=== PATIENT | female | born 1980 | race Caucasian/White ===

== ENCOUNTER 2017-07-08 13:02 | Emergency (ER) | payer MEDICAID ==
[~2017-07-08 13:02] MED LIST: AMLO5 PO; THYROID PO
[2017-07-08 13:03] VITALS: BP 180/91; PULSE 65; RESP 16; TEMP 98.4; O2SAT 100
[2017-07-08] MEDS ORDERED: HYDR-3801 PO (13:41)
--- NOTE | 2017-07-08 13:42 | PD ---
HPI Chief Complaint: Abdominal Pain Time Seen by Provider: 13:40 Travel History International Travel<30 days: No Contact w/Intl Traveler<30days: No Traveled to known affect area: No History of Present Illness HPI 37-year-old female patient presents to the ER today, states that she has been having several months history of upper abdominal pains, intermittent nausea, and chest discomfort, states that her pain is currently a 5 out of 10. She does not know of any alleviating or exacerbating factors. She denies any diarrhea, fevers, or any other symptoms. Modifying Factors: None Associated Signs & Symptoms: Upper abdominal pain Risk Factors: None PFSH Past Medical History Anemia: Yes Diminished Hearing: No Thyroid Disease: Yes : 2 Para: 2 Miscarriage: 0 : 0 Past Surgical History Cholecystectomy: Yes Other Surgery: Yes (THYRIODECTOMY ) Social History Alcohol Use: No Tobacco Use: No Substance Use: No Allergies-Medications (Allergen,Severity, Reaction): Coded Allergies: No Known Allergies (Verified Adverse Reaction, Unknown, 07/08/17) Reported Meds & Prescriptions Reported Meds & Active Scripts Active Reported Hydralazine (Hydralazine HCl) 100 Mg Tab 10 Mg PO BID Take with meals Review of Systems Except as stated in HPI: all other systems reviewed are Neg Physical Exam Narrative GENERAL: Well-developed female patient currently in mild distress. Awake and oriented 3. SKIN: Focused skin assessment warm/dry. HEAD: Atraumatic. Normocephalic. EYES: Pupils equal and round. No scleral icterus. No injection or drainage. ENT: No nasal bleeding or discharge. Mucous membranes pink and moist. NECK: Trachea midline. No JVD. CARDIOVASCULAR: Regular rate and rhythm. No murmur appreciated. RESPIRATORY: No accessory muscle use. Clear to auscultation. Breath sounds equal bilaterally. GASTROINTESTINAL: Abdomen soft, mild epigastric tenderness without guarding or rebound, nondistended. Hepatic and splenic margins not palpable. MUSCULOSKELETAL: No obvious deformities. No clubbing. No cyanosis. No edema. NEUROLOGICAL: Awake and alert. No obvious cranial nerve deficits. Motor grossly within normal limits. Normal speech. PSYCHIATRIC: Appropriate mood and affect; insight and judgment normal. Data Data Last Documented VS Vital Signs Date Time Temp Pulse Resp B/P (MAP) Pulse Ox O2 Delivery O2 Flow Rate FiO2 07/08/17 13:39 16 07/08/17 13:03 98.4 65 180/91 (120) 100 Orders Orders Complete Blood Count With Diff (07/08/17 13:10) Comprehensive Metabolic Panel (07/08/17 13:10) Lipase (07/08/17 13:10) Urinalysis - C+S If Indicated (07/08/17 13:10) Electrocardiogram (07/08/17 13:10) Ed Urine Pregnancytest Poc (07/08/17 13:10) Ckmb (Isoenzyme) Profile (07/08/17 13:11) Prothrombin Time / Inr (Pt) (07/08/17 13:11) Act Partial Throm Time (Ptt) (07/08/17 13:11) Troponin I (07/08/17 13:11) Famotidine Inj (Pepcid Inj) (07/08/17 14:45) Urine Culture (07/08/17 13:45) Labs Laboratory Tests Test 07/08/17 13:45 White Blood Count 7.9 TH/MM3 Red Blood Count 3.89 MIL/MM3 Hemoglobin 11.2 GM/DL Hematocrit 33.6 % Mean Corpuscular Volume 86.2 FL Mean Corpuscular Hemoglobin 28.7 PG Mean Corpuscular Hemoglobin Concent 33.3 % Red Cell Distribution Width 16.0 % Platelet Count 323 TH/MM3 Mean Platelet Volume 6.9 FL Neutrophils (%) (Auto) 68.0 % Lymphocytes (%) (Auto) 22.6 % Monocytes (%) (Auto) 7.0 % Eosinophils (%) (Auto) 1.6 % Basophils (%) (Auto) 0.8 % Neutrophils # (Auto) 5.4 TH/MM3 Lymphocytes # (Auto) 1.8 TH/MM3 Monocytes # (Auto) 0.6 TH/MM3 Eosinophils # (Auto) 0.1 TH/MM3 Basophils # (Auto) 0.1 TH/MM3 CBC Comment DIFF FINAL Differential Comment Prothrombin Time 9.8 SEC Prothromb Time International Ratio 1.0 RATIO Activated Partial Thromboplast Time 24.5 SEC Urine Color YELLOW Urine Turbidity HAZY Urine pH 6.0 Urine Specific [place] 1.009 Urine Protein NEG mg/dL Urine Glucose (UA) NEG mg/dL Urine Ketones NEG mg/dL Urine Occult Blood NEG Urine Nitrite NEG Urine Bilirubin NEG Urine Urobilinogen LESS THAN 2.0 MG/DL Urine Leukocyte Esterase LARGE Urine RBC 1 /hpf Urine WBC 44 /hpf Urine WBC Clumps MANY Urine Squamous Epithelial Cells <1 /hpf Urine Bacteria OCC /hpf Microscopic Urinalysis Comment CULTURE INDICATED Blood Urea Nitrogen 10 MG/DL Creatinine 1.16 MG/DL Random Glucose 83 MG/DL Total Protein 7.9 GM/DL Albumin 3.8 GM/DL Calcium Level 8.8 MG/DL Alkaline Phosphatase 54 U/L Aspartate Amino Transf (AST/SGOT) 11 U/L Alanine Aminotransferase (ALT/SGPT) 12 U/L Total Bilirubin 0.3 MG/DL Sodium Level 136 MEQ/L Potassium Level 4.0 MEQ/L Chloride Level 102 MEQ/L Carbon Dioxide Level 28.0 MEQ/L Anion Gap 6 MEQ/L Estimat Glomerular Filtration Rate 52 ML/MIN Total Creatine Kinase 96 U/L Troponin I LESS THAN 0.02 NG/ML Lipase 259 U/L MDM Medical Decision Making Medical Screen Exam Complete: Yes Emergency Medical Condition: Yes Medical Record Reviewed: Yes Interpretation(s) EKG shows sinus bradycardia rate of 59 bpm, no ST elevation or depression, and no arrhythmias. No significant T-wave inversions. Laboratory Tests Test 07/08/17 13:45 Red Blood Count 3.89 MIL/MM3 (4.00-5.30) Hemoglobin 11.2 GM/DL (11.6-15.3) Hematocrit 33.6 % (35.0-46.0) Mean Platelet Volume 6.9 FL (7.0-11.0) Urine Turbidity HAZY (CLEAR) Urine Leukocyte Esterase LARGE (NEG) Urine WBC 44 /hpf (0-5) Urine WBC Clumps MANY (NONE) Urine Bacteria OCC /hpf (NONE) Creatinine 1.16 MG/DL (0.50-1.00) Aspartate Amino Transf (AST/SGOT) 11 U/L (15-37) Estimat Glomerular Filtration Rate 52 ML/MIN (>89) Troponin I LESS THAN 0.02 NG/ML Differential Diagnosis Gastritis versus gastroenteritis versus gastroesophageal reflux versus pancreatitis versus dysrhythmias versus anxiety versus ACS Narrative Course She is not . Abdomen is fairly benign I am not suspecting acute intra- abdominal process. Her lab work did show a UTI. Her lipase is normal. Her CBC is unremarkable for any significant leukocytosis. At this point, my plan would be to treat her UTI and have her follow-up with primary care physician. Symptoms apparently have been going on for several months. Return for any worsening in pain or new symptoms as needed. The plan has been discussed with her and she states understanding. Diagnosis Primary Impression: Abdominal pain Additional Impression: UTI (urinary tract infection) Med/Other Pt SpecificInfo: Prescription(s) given Scripts Nitrofurantoin Monohydrate Macrocrystals (Macrobid) 100 Mg Cap 100 MG PO BID for Infection for 7 Days, #14 CAP 0 Refills Prov: Db Guthrie MD 07/08/17 Ranitidine (Zantac) 150 Mg Tab 150 MG PO BID for Reduce Stomach Acid, #20 TAB 0 Refills Prov: Db Guthrie MD 07/08/17 Disposition: 01 DISCHARGE HOME Condition: Stable Db Guthrie MD Jul 08, 2017 13:42
[2017-07-08 14:15] LABS: AUTOMATED NEUTROPHIL # 5.4 TH/MM3 (1.8-7.7); BASOPHIL # 0.1 TH/MM3 (0-0.2); BASOPHIL % 0.8 % (0.0-2.0); EOSINOPHIL # 0.1 TH/MM3 (0-0.4); EOSINOPHIL % 1.6 % (0.0-4.0); HEMATOCRIT 33.6 % (35.0-46.0); HEMOGLOBIN 11.2 GM/DL (11.6-15.3); LYMPH % 22.6 % (9.0-44.0); LYMPHOCYTE # 1.8 TH/MM3 (1.0-4.8); MEAN CELL VOLUME 86.2 FL (80.0-100.0); MEAN CORPUSCULAR HEMOGLOBIN 28.7 PG (27.0-34.0); MEAN CORPUSCULAR HGB CONC 33.3 % (32.0-36.0); MEAN PLATELET VOLUME 6.9 FL (7.0-11.0); MONOCYTE # 0.6 TH/MM3 (0-0.9); PLATELET COUNT 323 TH/MM3 (150-450); RED BLOOD COUNT 3.89 MIL/MM3 (4.00-5.30); WHITE BLOOD COUNT 7.9 TH/MM3 (4.0-11.0)
[2017-07-08 14:25] LABS: PROTHROMBIN TIME - PATIENT 9.8 SEC (9.8-11.6)
[2017-07-08 14:31] LABS: ALBUMIN 3.8 GM/DL (3.4-5.0); ALT (GPT) 12 U/L (10-53); AST (GOT) 11 U/L (15-37); BLOOD UREA NITROGEN 10 MG/DL (7-18); CALCIUM 8.8 MG/DL (8.5-10.1); CHLORIDE 102 MEQ/L (98-107); CREATININE 1.16 MG/DL (0.50-1.00); GLOMERULAR FILTRATION RATE 52 ML/MIN (>89); GLUCOSE,RANDOM 83 MG/DL (74-106); SODIUM (NA) 136 MEQ/L (136-145)
[2017-07-08 14:33] LABS: ALKALINE PHOSPHATASE 54 U/L (45-117); TOTAL BILIRUBIN ADULT 0.3 MG/DL (0.2-1.0); TOTAL PROTEIN 7.9 GM/DL (6.4-8.2)
[2017-07-08 14:35] LABS: TROPONIN I LESS THAN 0.02 NG/ML (0.02-0.05)
[2017-07-08 14:45] LABS: BACTERIA, URINE OCC /hpf; BILIRUBIN, URINE NEG (NEG); BLOOD, URINE NEG (NEG); GLUCOSE,URINE NEG (NEG); KETONE, URINE NEG (NEG); NITRITE,URINE NEG (NEG); SQUAMOUS EPITHELIAL CELL URINE <1 /hpf (0-5); URINE COLOR YELLOW (YELLW/STRAW); URINE LEUKOCYTE ESTERASE LARGE (NEG); WHITE BLOOD CELL CLUMPS MANY
[2017-07-08] MEDS ORDERED: FAMOTIDINE 20 MG/2 ML VIAL IV PUSH ONE (14:45)
[2017-07-08] MEDS ORDERED: ZANT150T2 PO (14:59)
[2017-07-08] MEDS ORDERED: MACR100C2 PO (14:59)
[2017-07-08 15:10] VITALS: BP 122/85; TEMP 97.8
--- NOTE | 2017-07-09 19:16 | EKG ---
Date Performed: 07/08/2017 Time Performed: 13:17:37 PTAGE: 37 years EKG: SINUS BRADYCARDIA BORDERLINE ECG Since the prior tracing, there has been no significant jarett nge PREVIOUS TRACING : 12/22/2015 15.24 DOCTOR: Chavez Keene Interpretating Date/Time 07/09/2017 19:14:16
== END 2017-07-08 15:10 | disposition home or self-care (01) ==
LOC: NEPE 13:02
DX: N39.0 Urinary tract infection, site not specified (principal); B96.1 Klebsiella pneumoniae [K. pneumoniae] as the cause of diseases classified elsewhere; R10.9 Unspecified abdominal pain; R94.31 Abnormal electrocardiogram [ECG] [EKG]
CPT/HCPCS: 80053; 81001; 82550; 83690; 84484; 84703; 85025; 85610; 85730; 87077; 87086; 87186; 93005; 96374